=== PATIENT | female | born 2000 | race African-American/Black ===

== ENCOUNTER 2023-08-29 14:19 | Emergency (ER) | payer OTHER ==
[2023-08-29 14:35] VITALS: BP 142/90; PULSE 69; RESP 18; TEMP 98.2; BMI 21.9
[2023-08-29] MEDS ORDERED: METOCLOPRAMIDE HCL INJECTION 10 MG/2 ML VIAL IVPUSH ONE (15:02)
[2023-08-29] MEDS ORDERED: SODIUM CHLORIDE 0.9% 500 ML INFUS.BAG IV ONE (15:02)
[2023-08-29] MEDS ORDERED: METOCLOPRAMIDE HCL INJECTION 10 MG/2 ML VIAL ONE (15:14)
[2023-08-29 16:36] LABS: BASO % 0.3 % (0-2.0); EOS % 0.7 % (0-4.5); HEMOGLOBIN 12.9 GM/dL (10.7-15.3); LYMPH % 26.4 % (8-40); MCH 28.2 pg (25.7-33.7); MEAN CELL VOLUME 82.8 fl (80-96); MEAN PLT VOLUME 10.7 fl (7.5-11.1); MONO % 11.8 % (3.8-10.2); NEUT % 60.8 % (42.8-82.8); PLATELET COUNT 242 10^3/uL (134-434); RBC 4.59 M/mm3 (3.60-5.2); RDW 13.2 % (11.6-15.6); WHITE BLOOD COUNT 9.6 K/mm3 (4.0-10.0)
[2023-08-29 16:55] LABS: POTASSIUM 4.7 mmol/L (3.5-5.1)
[2023-08-29 16:57] LABS: ALBUMIN 3.9 g/dl (3.4-5.0); BLOOD UREA NITROGEN 9.5 mg/dL (7-18); CALCIUM 9.3 mg/dL (8.5-10.1)
[2023-08-29 17:00] LABS: BILIRUBIN,TOTAL 0.4 mg/dL (0.2-1); TOT PROT 7.6 g/dl (6.4-8.2)
[2023-08-29 19:23] LABS: PH,URINE 6.5 (5.0-8.0); URINE APPEARANCE CLEAR; URINE BILIRUBIN NEGATIVE (NEGATIVE); URINE COLOR YELLOW; URINE GLUCOSE (UA) NEGATIVE (NEGATIVE); URINE KETONE NEGATIVE (NEGATIVE); URINE LEUK ESTERASE NEGATIVE (NEGATIVE); URINE NITRITE NEGATIVE (NEGATIVE); URINE PROTEIN 1+ (NEGATIVE)
[2023-08-29 22:48] LABS: EPI CELLS 13.4 /uL (0-25.1); HYALINE CASTS 1.75 /uL (0-3.1); URINE BACTERIA 63.4 /uL (0-1359); URINE RBC 13.8 /uL (0-23.9); URINE WBC 5.8 /uL (0-25.8)
== END 2023-08-29 19:49 | disposition home or self-care (01) ==
LOC: JER 14:19
PROC: 3E033GC Introduction of Other Therapeutic Substance into Peripheral Vein, Percutaneous Approach (ICD-10-PCS; principal; 2023-08-29)
DX: R11.2 Nausea with vomiting, unspecified (principal); R10.33 Periumbilical pain
CPT/HCPCS: 36415; 74177-TC; 80053; 81003; 83690; 84703; 85025; 87086; 99285-25; Q9967